=== PATIENT | female | born 1975 | race Caucasian/White ===

== ENCOUNTER 2021-11-29 16:12 | Emergency (ER) | payer OTHER ==
[~2021-11-29] VITALS: Ht 157.5 cm; Wt 121.0 kg
[2021-11-29] MEDS ORDERED: WELLBUTRIN XL300 MG PO (16:31)
[2021-11-29] MEDS ORDERED: PROAIR HFA8.5 GM INH (20:31)
[2021-11-29] MEDS ORDERED: NEURONTIN100 MG PO (20:31)
== END 2021-11-29 21:15 | disposition home or self-care (01) ==
LOC: ED 16:12
DX: R20.2 Paresthesia of skin (principal); R06.00 Dyspnea, unspecified; Z20.822 Contact with and (suspected) exposure to COVID-19
CPT/HCPCS: 36415; 71045; 72040; 80053; 83735; 83880; 85025; 87502; 99285-25; C9803; U0003

== ENCOUNTER 2023-10-26 08:40 | Day surgery (SDC) | payer OTHER ==
[2023-10-24 08:16] VITALS: BP 148/89
[~2023-10-26] VITALS: Ht 157.5 cm; Wt 113.6 kg
[~2023-10-26 08:40] MED LIST: IBLOOD GLUCOSE TEST STRIP 1 EA TEST VI PRN; LACTATED RINGER'S 1,000 ML IV SCH; LIDOCAINE HCL 1% 5 ML SDV INJ ONE; NEURONTIN100 MG PO; PROAIR HFA8.5 GM INH; WELLBUTRIN XL300 MG PO
[2023-10-26 08:55] VITALS: BP 133/76
[2023-10-26] MEDS ORDERED: propofoL 200 MG/20 ML VIAL ONE (09:41)
[2023-10-26] MEDS ORDERED: ACETAMINOPHEN 1,000 MG/100 ML VIAL ONE (09:41)
[2023-10-26] MEDS ORDERED: ondansetron HCL 4 MG/2 ML VIAL ONE (09:41)
[2023-10-26] MEDS ORDERED: LIDOCAINE HCL 2% 5 ML SDV ONE (09:41)
[2023-10-26] MEDS ORDERED: DEXAMETHASONE SOD PHOS 4 MG/ML VIAL ONE (09:41)
[2023-10-26] MEDS ORDERED: KETOROLAC TROMETHAMINE 30 MG/ML VIAL ONE (09:41)
[2023-10-26] MEDS ORDERED: fentaNYL citrate 100 MCG/2 ML VIAL ONE (09:43)
--- NOTE | 2023-10-26 10:03 | NUR ---
UPDATED PT ON SURGERY WAIT TIME. NO OTHER NEEDS AT THIS TIME. CALL LIGHT WITHN REACH.
[2023-10-26] MEDS ORDERED: droPERidol 5 MG/2 ML VIAL IV PRN (11:00)
[2023-10-26] MEDS ORDERED: ondansetron HCL 4 MG/2 ML VIAL IV PRN ×2 (11:00→12:45)
[2023-10-26] MEDS ORDERED: NALOXONE HCL 0.4 MG SYR IV PRN ×2 (11:00→12:45)
[2023-10-26] MEDS ORDERED: fentaNYL citrate 50 MCG/ML SDV IV PRN (11:00)
[2023-10-26] MEDS ORDERED: IBLOOD GLUCOSE TEST STRIP 1 EA TEST VI PRN (11:00)
--- NOTE | 2023-10-26 11:54 | NUR ---
10/26/23 Gerald4 Karina Mckeon 1148-PATIENT ARRIVED TO PACU AWAKE, DROWSY ON RA RR EVEN 91% ENCOURAGED DEEP BREATHING 02 SAT INCREASED TO 94% HOB ELEVATED. VANIA PAD IN PLACE CDI. SR. PATIENT DENIES PAIN OR NAUSEA. PATIENT ASKING "AM I READY TO GO YET" EDUCATED ABOUT WAKING UP
[2023-10-26 12:11] VITALS: BP 135/66
[2023-10-26] MEDS ORDERED: FAMOTIDINE 20 MG/ 2 ML VIAL IV PRN (12:45)
[2023-10-26] MEDS ORDERED: MAGNESIUM HYDROXIDE/AL HYDROX 30 ML CUP PO PRN (12:45)
[2023-10-26] MEDS ORDERED: OXYCODONE/APAP 5/325 TAB PO PRN (12:45)
[2023-10-26] MEDS ORDERED: METOCLOPRAMIDE HCL 10 MG/2 ML SDV IV PRN (12:45)
[2023-10-26] MEDS ORDERED: SIMETHICONE 125 MG TABLET CHEWABLE PO SCH (13:00)
[2023-10-26 13:10] VITALS: BP 124/63
--- NOTE | 2023-10-26 13:21 | NUR ---
JESSA 1210-PT BACK TO ROOM FROM PACU ON . RECEIVED REPORT FROM GERBER BAKER. PT IS AWAKE. RESP EVEN AND UNLABORED. DENIES PAIN AND NAUSEA. PT TAKING SIPS OF WATER. NO OTHER NEEDS AT THIS TIME. CALL LIGHT WITHIN REACH.
--- NOTE | 2023-10-26 13:22 | NUR ---
LE 1310-PT LAYING IN BED AWAKE. RESP EVEN AND UNLABORED. STATES NO PAIN BUT SOME PRESSURE AND THIS IS TOLERABLE. DENIES NAUSEA. PT DRINKING WATER. NO OTHER NEEDS AT THIS TIME. CALL LIGHT WITHIN REACH.
[2023-10-26] MEDS ORDERED: IBUPROFEN 800 MG TAB PO SCH (14:00)
--- NOTE | 2023-10-26 14:10 | NUR ---
LE 1335-PT AMBLATES TO RESTROOM. GAIT STEADY AND TOLERATED WELL. PT VOIDS 125ML. LE 1340-PT AMBULATES BACK TO ROOM. PT READY TO GO HOME. PT WILL GET DRESSED. CALL LIGHT WITHIN REACH.
--- NOTE | 2023-10-26 14:17 | NUR ---
JESSA 1350-WENT OVER DISHCARGE INSTRUCTIONS WITH PT. WENT OVER POSTOP MEDICATIONS. ALL QUESTIONS ANSWERED. PT AMBULATES TO WHEELCHAIR AND RIDE PROVIDED TO FRONT OF HOSPITAL WHERE FRIEND WAS WAITING WITH THE CAR.
--- NOTE | 2023-10-28 12:31 | PATH ---
[facility] [address], [place] [address] Signed SPECIMEN(S): A ENDOMETRIAL CURETTINGS, MYOMECTOMY SPECIMEN SOURCE: A. ENDOMETRIAL CURETTINGS, MYOMECTOMY CLINICAL HISTORY: PMB, uterine leiomyoma, intramural uterine fibroid FINAL PATHOLOGIC DIAGNOSIS: Endometrial curettings: - Atrophic endometrium, negative for atypia or hyperplasia. - Morphologic features consistent with submucosal leiomyoma. NA MICROSCOPIC EXAMINATION: Histologic sections of all submitted blocks are examined by light microscopy. These findings, together with the gross examination, support the pathologic diagnosis. GROSS DESCRIPTION: The specimen, labeled and designated "Brandvold, endometrial curettings and myomectomy," is received in formalin and consists of multiple fragments of busch to red-brown soft tissue (2.6 x 1.4 x 0.3 cm in aggregate). The specimen is submitted entirely in cassette (A1). VB (under the direct supervision of a pathologist) The Gross Description was prepared using a voice recognition system. The report was reviewed for accuracy; however, sound-alike word errors, addition and/or deletions may occur. If there is any question about this report, please contact Client Services. ADDITIONAL NOTES: Immunohistochemical and/or in situ hybridization studies if performed in this case included appropriate positive controls that reacted as expected. This test was developed and its performance characteristics determined by [facility]. It has not been cleared or approved by the U.S. Food and Drug Administration. The FDA has determined that such clearance or approval is not necessary. This test is used for clinical purposes. It should not be regarded as investigational or for research. [facility] is certified under the Clinical Laboratory Improvement Amendments of 1988 (CLIA) as qualified to perform high complexity clinical PATIENT NAME: ENMA ARELLANO PATHOLOGY DATE OF : 71 REPORT #: [id number] PHYSICIAN: GIRISH PATHOLOGY PCP: NO PRIMARY CARE PHYSICIAN REPORT IS CONFIDENTIAL AND NOT TO BE RELEASED WITHOUT AUTHORIZATION [facility] [address], [place] [address] Signed laboratory testing. PERFORMING LABORATORY: Technical component was performed by [facility], [address] [place] [address] (CLIA# [id number]). Professional interpretation was performed by [facility] - [facility], [address] [place] [address] (CLIA#: [id number]). Diagnostician: Cinda Shi MD Pathologist Electronically Signed 10/28/2023 Copies: ~ PATIENT NAME: ENMA ARELLANO PATHOLOGY DATE OF : 71 REPORT #: [id number] PHYSICIAN: GIRISH PATHOLOGY PCP: NO PRIMARY CARE PHYSICIAN REPORT IS CONFIDENTIAL AND NOT TO BE RELEASED WITHOUT AUTHORIZATION
--- NOTE | 2023-11-02 00:22 | OR ---
[facility] [address] [place], [place] [address] Signed DATE OF OPERATION: 10/26/2023 SURGEON: Indira Shabazz DO PREOPERATIVE DIAGNOSES: 1. Postmenopausal bleeding. 2. Submucosal/intramural fibroid. PROCEDURES PERFORMED: 1. Hysteroscopic myomectomy. 2. Dilation and curettage. INVOICING SPECIALIST: None. ANESTHESIA: General. ESTIMATED BLOOD LOSS: 5 mL. FLUID DEFICIT: 75 mL. COMPLICATIONS: None. FINDINGS: Large left submucosal/intramural fibroid that was resected, flushed to the endometrial cavity. Otherwise, thin/atrophic appearing endometrium. INDICATIONS: Ms. Wong is a very pleasant 48-year-old female with postmenopausal bleeding. An ultrasound demonstrated large intramural/submucosal fibroid. She was consented for hysteroscopic myomectomy, dilation and curettage. Risks, benefits, and alternatives were discussed in detail with the patient. The patient understands and wished to proceed with the procedure. DESCRIPTION OF PROCEDURE: The patient was taken to the OR where a time-out was performed to confirm correct Electronically Signed By: INDIRA SHABAZZ DO (JD) 11/02/23 0022 PATIENT NAME: ENMA WONG OPERATIVE REPORT DATE OF : 71 REPORT #: [id number] PHYSICIAN: INDIRA SHABAZZ DO (JD) PCP: NO PRIMARY CARE PHYSICIAN REPORT IS CONFIDENTIAL AND NOT TO BE RELEASED WITHOUT AUTHORIZATION [facility] [address] [facility] [place], [place] [address] Signed patient and correct procedure. General anesthesia was established. The patient was prepped and draped in dorsal lithotomy position with her feet in Yellofin stirrups. ICPs were on and running and no preoperative antibiotics or heparin was indicated. A weighted speculum was placed in the vagina. The anterior lip of the cervix was grasped with an Allis clamp. The cervix was gently dilated using Hegar dilators to #7. An operative hysteroscope was then placed in the cervical os and advanced under direct visualization to the uterine cavity. Thin atrophic appearing endometrium was noted throughout the endometrial cavity. However, there was a large submucosal intramural fibroid noted consistent with ultrasound findings. MyoSure device was selected and myomectomy was performed to remove the bulk of the fibroid at least flushed with the uterine cavity. Sampling of the endometrium was performed in a 360-degree manner. The hysteroscope was withdrawn. Allis clamp was removed and the patient was taken to the PACU in good and stable condition. The fluid deficit noted at 75 mL. Sponge, needle, and instrument counts was correct x2 at the end the of the procedure. DO SHAMIKA Hernandez/CHRISTELLE /[id number] Copies: ~ Electronically Signed By: INDIRA SHABAZZ DO (JD) 11/02/23 0022 PATIENT NAME: ENMA WONG OPERATIVE REPORT DATE OF : 71 REPORT #: [id number] PHYSICIAN: INDIRA SHABAZZ) PCP: NO PRIMARY CARE PHYSICIAN REPORT IS CONFIDENTIAL AND NOT TO BE RELEASED WITHOUT AUTHORIZATION
== END 2023-10-26 13:50 | disposition home or self-care (01) ==
LOC: DS 08:40 → OPS 08:40 → DS 12:45 → OPS 12:45
PROVIDERS: ATTEND Obstetrics & Gynecology
PROC: 0UB98ZZ Excision of Uterus, Via Natural or Artificial Opening Endoscopic (ICD-10-PCS; principal; 2023-10-26 11:30)
DX: D25.0 Submucous leiomyoma of uterus (principal); D25.1 Intramural leiomyoma of uterus; I10 Essential (primary) hypertension; R73.03 Prediabetes; E78.2 Mixed hyperlipidemia; E66.9 Obesity, unspecified; Z68.42 Body mass index [BMI] 45.0-49.9, adult; Z79.899 Other long term (current) drug therapy; Z88.2 Allergy status to sulfonamides
CPT/HCPCS: 00952; 88305; J0131; J1100; J1885; J2001; J2405; J2704; J3010; J7121

== ENCOUNTER 2024-12-12 16:09 | Emergency (ER) | payer OTHER ==
[~2024-12-12] VITALS: Ht 157.5 cm; Wt 110.0 kg
[~2024-12-12 16:09] MED LIST changes: -IBLOOD GLUCOSE TEST STRIP 1 EA TEST VI PRN; -LACTATED RINGER'S 1,000 ML IV SCH; -LIDOCAINE HCL 1% 5 ML SDV INJ ONE
[2024-12-12] MEDS ORDERED: ANTIFUNGAL113 GM TOP (16:44)
[2024-12-12 17:04] VITALS: BP 130/83
[2024-12-13] MEDS ORDERED: CEPHALEXIN500 M1 PO (14:02)
== END 2024-12-12 17:05 | disposition home or self-care (01) ==
LOC: ED 16:09
DX: B37.31 Acute candidiasis of vulva and vagina (principal); Z88.2 Allergy status to sulfonamides; Z79.899 Other long term (current) drug therapy
CPT/HCPCS: 99283

== ENCOUNTER 2024-12-13 10:53 | Emergency (ER) | payer OTHER ==
[~2024-12-13] VITALS: Ht 157.5 cm; Wt 109.6 kg
[~2024-12-13 10:53] MED LIST changes: +ANTIFUNGAL113 GM TOP
--- OUTSIDE RECORDS SUMMARY | 2024-12-13 11:00 | XMS ---
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 Nikolai VISIT COUNT (12 MO.) 2 JANEE Hartley TOTAL 2 NOTE: Visits indicate total known visits. ED/UCC VISIT TRACKING (12 MO.) 12/13/2024 10:54 JANEE Fisher OR TYPE: Emergency COMPLAINT: - SKIN PROBLEM 12/12/2024 16:10 JANEE Fisher OR TYPE: Emergency COMPLAINT: - VAGINAL PAIN INPATIENT VISIT TRACKING (12 MO.) No inpatient visits to display in this time frame [email or web address]
[2024-12-13 12:41] LABS: BASOPHILS 0.4 % (0.1-1.2); EOSINOPHILS 1.7 % (0.7-5.8); LYMPHOCYTES 20.7 % (19.3-51.7); MCH 28.9 PG (25.6-32.2); MCHC 33.7 g/dL (32.2-35.5); MCV 85.7 fL (79.4-94.8); MONOCYTES 5.4 % (4.7-12.5); NEUTROPHILS 71.5 % (34.0-71.1); RBC 4.88 M/uL (3.93-5.22)
[2024-12-13 12:57] LABS: ALT (SGPT) 20.0 U/L (14-59); AST (SGOT) 11.0 U/L (15-37); GLOMERULAR FILTRATION RATE,EST 88.0 mL/min (>60); PROTEIN, TOTAL 7.7 g/dL (6.4-8.2); UREA NITROGEN 12.0 mg/dL (7-18)
[2024-12-13] MEDS ORDERED: CEPHALEXIN500 M1 PO (14:02)
[2024-12-13 14:08] VITALS: BP 141/93
== END 2024-12-13 14:05 | disposition home or self-care (01) ==
LOC: ED 10:53
PROVIDERS: Emergency Medicine
DX: N76.2 Acute vulvitis (principal); L03.314 Cellulitis of groin; Z88.2 Allergy status to sulfonamides; Z79.899 Other long term (current) drug therapy
CPT/HCPCS: 36415; 72193; 80053; 85025; 99284-25; Q9967